=== PATIENT | female | born 1945 | race Caucasian/White ===

== ENCOUNTER → 2023-12-08 14:16 | Outpatient (REF) | payer MEDICARE, OTHER, SELFPAY ==
[2023-12-08 16:07] LABS: Vitamin D, 25-OH*** 19.3 ng/mL (30-80)
[2023-12-08 16:21] LABS: TSH Reflex To Free T4 2.76 uIU/ml (0.47-4.68)
[2023-12-08 16:57] LABS: Folate 9.1 ng/ml (2.76-20); Vitamin B12 > 1000 pg/ml (239-931)
[2023-12-09 09:47] LABS: Glycohemoglobin (HgbA1c) 6.2 % (4.0-5.6)
[2023-12-09 14:14] LABS: Hepatitis B Surface Antigen Negative (Negative)
[2023-12-09 14:32] LABS: Hepatitis B Core Ab, Total Negative (Negative); Hepatitis B Surface Antibody Negative
== END ==
LOC: REG 14:16
PROVIDERS: ATTENDING PHYSICIAN Student in an Organized Health Care Education/Training Program
DX: R41.3 Other amnesia (principal); Z00.00 Encounter for general adult medical examination without abnormal findings; Z68.38 Body mass index [BMI] 38.0-38.9, adult; Z85.3 Personal history of malignant neoplasm of breast; Z85.828 Personal history of other malignant neoplasm of skin; E55.9 Vitamin D deficiency, unspecified; E78.2 Mixed hyperlipidemia; E53.8 Deficiency of other specified B group vitamins; R73.03 Prediabetes
CPT/HCPCS: 36415; 82306; 82607; 82746; 83036; 84443; 86704; 86706; 87340

== ENCOUNTER → 2024-01-23 14:39 | Outpatient (REF) | payer MEDICARE, OTHER, SELFPAY | LOC: WDC 14:39 | PROVIDERS: ATTENDING PHYSICIAN Student in an Organized Health Care Education/Training Program | DX: Z85.3 Personal history of malignant neoplasm of breast (principal); M85.89 Other specified disorders of bone density and structure, multiple sites; Z12.31 Encounter for screening mammogram for malignant neoplasm of breast; Z00.00 Encounter for general adult medical examination without abnormal findings | CPT/HCPCS: 77063; 77067; 77080 ==

== ENCOUNTER → 2024-02-08 06:24 | Day surgery (SDC) | payer MEDICARE, OTHER, SELFPAY | LOC: GI 06:24 | PROVIDERS: ATTENDING PHYSICIAN Internal Medicine | DX: Z12.11 Encounter for screening for malignant neoplasm of colon (principal); K64.8 Other hemorrhoids; K63.5 Polyp of colon; Z86.010 Personal history of colon polyps | CPT/HCPCS: 45385; 88305 ==

== ENCOUNTER → 2024-02-22 10:46 | Outpatient (REF) | payer MEDICARE, OTHER, SELFPAY ==
[2024-02-22 12:20] LABS: % Basophils 0.8 % (0-2); % Eosinophils 2.2 % (0-6); % Immature Granulocytes 0.5 % (0-0.5); % Monocytes 7.9 % (1.7-9.3); % Neutrophils 64.6 % (42.2-75.2); Absolute Basophils 0.1 10^3/uL (0-0.2); Absolute Eosinophils 0.1 10^3/uL (0-0.7); Absolute Lymphocytes 1.5 10^3/uL (1.2-3.4); Absolute Monocytes 0.5 10^3/uL (0.1-0.6); Hematocrit 41.6 % (37.0-47.0); Hemoglobin 14.5 g/dL (12.0-16.0); Mean Corp Hgb Conc. 34.9 g/dL (33.0-37.0); Mean Corpuscular Hgb 31.3 pg (27.0-31.0); Mean Corpuscular Volume 89.8 fL (81.0-99.0); Nucleated Red Blood Cells % 0 %; Platelet Count 346 10^3/uL (130-400); Red Blood Cell Count 4.63 10^6/uL (4.20-5.40); Red Cell Dist. Width 13.3 % (11.5-14.5); White Blood Cell Count 6.2 10^3/uL (4.8-10.8)
[2024-02-22 12:39] LABS: ALT (SGPT) 17 U/L (0-35); AST (SGOT) 26 U/L (14-36); Albumin 4.5 g/dl (3.5-5.0); Alkaline Phosphatase 95 U/L (38-126); Blood Urea Nitrogen 14 mg/dl (7-17); Calcium 9.9 mg/dl (8.4-10.2); Carbon Dioxide 31 mmol/L (22-30); Chloride 97 mmol/L (98-107); Glucose 117 mg/dl (70-99); HDL Cholesterol 59 mg/dl; LDL Cholesterol, Calculated 105 mg/dl; Potassium 4.4 mmol/L (3.5-5.1); Sodium 136 mmol/L (135-145); Total Cholesterol 189 mg/dl (50-199); Total Protein 7.7 g/dl (6.3-8.2); Triglyceride 125 mg/dl (10-149); Very Low Density Lipoprotein 25 mg/dl (0-30); eGFR > 60.00
[2024-02-22 12:52] LABS: Vitamin D, 25-OH*** 19.7 ng/mL (30-80)
[2024-02-22 13:33] LABS: Urine Albumin 1+ (Neg - Trace); Urine Bilirubin 1+ (Negative); Urine Character Very Cloudy (Clear); Urine Color Yellow; Urine Glucose Negative (Negative); Urine Ketone Trace (Negative); Urine Leukocyte Trace (Negative); Urine Nitrite Negative (Negative); Urine Occult Blood Trace (Negative); Urine Specific Gravity 1.025 (<1.030); Urine Urobilinogen 1+ (Neg - 1+)
[2024-02-22 14:56] LABS: Urine Mucus Many; Urine Squamous Cell >30 /LPF (Few)
[2024-02-22 14:57] LABS: Urine Amorphous Seen
[2024-02-22 14:59] LABS: Urine Red Blood Cell 0-2 /HPF (0-2); Urine White Cell 0-2 /HPF (0-5)
== END ==
LOC: REG 10:46
PROVIDERS: ATTENDING PHYSICIAN Nurse Practitioner Family; FAMILY PHYSICIAN Internal Medicine Cardiovascular Disease
DX: E78.2 Mixed hyperlipidemia (principal); I10 Essential (primary) hypertension; G47.33 Obstructive sleep apnea (adult) (pediatric); M85.80 Other specified disorders of bone density and structure, unspecified site; E55.9 Vitamin D deficiency, unspecified; E66.01 Morbid (severe) obesity due to excess calories; E53.8 Deficiency of other specified B group vitamins; R73.03 Prediabetes; G31.84 Mild cognitive impairment of uncertain or unknown etiology
CPT/HCPCS: 36415; 80053; 80061; 81003; 81015; 82306; 85025

== ENCOUNTER → 2024-03-22 09:41 | Outpatient (REF) | payer MEDICARE, OTHER, SELFPAY ==
[2024-03-22 10:20] LABS: Urine Albumin Negative (Neg - Trace); Urine Bilirubin Negative (Negative); Urine Character Clear (Clear); Urine Color Yellow; Urine Glucose Negative (Negative); Urine Ketone Negative (Negative); Urine Leukocyte Negative (Negative); Urine Nitrite Negative (Negative); Urine Occult Blood Negative (Negative); Urine Specific Gravity 1.025 (<1.030); Urine Urobilinogen Negative (Neg - 1+)
== END ==
LOC: REG 09:41
PROVIDERS: ATTENDING PHYSICIAN Nurse Practitioner Family; FAMILY PHYSICIAN Family Medicine
DX: R82.90 Unspecified abnormal findings in urine (principal)
CPT/HCPCS: 81003

== ENCOUNTER 2024-09-17 02:09 | Inpatient (IN) | payer MEDICARE, OTHER, SELFPAY ==
[2024-09-16 22:37] VITALS: BMI 40.8
[2024-09-16 22:45] VITALS: BP 89/45
[2024-09-16 22:46] VITALS: BP 113/55
[2024-09-16 22:47] VITALS: BP 113/55
[2024-09-16 22:59] LABS: % Basophils 0.4 % (0-2); % Eosinophils 1.9 % (0-6); % Immature Granulocytes 0.4 % (0-0.5); % Lymphocytes 24.4 % (20.5-51.1); % Monocytes 4.1 % (1.7-9.3); % Neutrophils 68.8 % (42.2-75.2); Absolute Basophils 0.1 10^3/uL (0-0.2); Absolute Eosinophils 0.2 10^3/uL (0-0.7); Absolute Immature Granulocytes 0.1 10^3/uL (0-0.05); Absolute Lymphocytes 2.9 10^3/uL (1.2-3.4); Absolute Monocytes 0.5 10^3/uL (0.1-0.6); Absolute Neutrophils 8.2 10^3/uL (1.4-6.5); Hematocrit 28.9 % (37.0-47.0); Hemoglobin 9.9 g/dL (12.0-16.0); Mean Corp Hgb Conc. 34.3 g/dL (33.0-37.0); Mean Corpuscular Hgb 32.6 pg (27.0-31.0); Mean Corpuscular Volume 95.1 fL (81.0-99.0); Mean Platelet Volume 8.8 fL (7.4-10.4); Nucleated Red Blood Cells % 0 %; Platelet Count 298 10^3/uL (130-400); Red Blood Cell Count 3.04 10^6/uL (4.20-5.40); Red Cell Dist. Width 13.2 % (11.5-14.5); White Blood Cell Count 11.9 10^3/uL (4.8-10.8)
[2024-09-16 23:00] VITALS: BP 122/52
[2024-09-16 23:08] VITALS: BP 119/46
[2024-09-16 23:08] LABS: INR 0.92; PT 12.7 Sec (11.4-14.6)
[2024-09-16 23:09] LABS: APTT 25.1 Sec (23.4-35.0)
[2024-09-16 23:11] LABS: ALT (SGPT) 16 U/L (0-35); AST (SGOT) 25 U/L (14-36); Albumin 3.5 g/dl (3.5-5.0); Alkaline Phosphatase 75 U/L (38-126); Blood Urea Nitrogen 24 mg/dl (7-17); Carbon Dioxide 26 mmol/L (22-30); Chloride 100 mmol/L (98-107); Estimated Creatinine Clearance 56 ml/min; Glucose 194 mg/dl (70-99); Potassium 4.5 mmol/L (3.5-5.1); Sodium 137 mmol/L (135-145); Total Bilirubin 0.5 mg/dl (0.2-1.3); Total Protein 6.2 g/dl (6.3-8.2); eGFR > 60.00
[2024-09-16 23:30] VITALS: BP 119/59
[2024-09-17] VITALS (15 sets, daily range): BP systolic 105–160; BP diastolic 43–70; PULSE 88; O2SAT 99; BMI 39.2
--- NOTE | 2024-09-17 00:24 | ED.GENMED ---
History of Present Illness
General
Chief Complaint: Rectal Bleeding
Source: patient
Exam Limitations: none
Time Seen by Provider: 09/16/24 23:42
Nursing documentation reviewed up to this point in time: agreed with
History of Present Illness
History of Present Illness:
79-year-old female states she had a large amount of blood from her rectum when she thought she had have a bowel movement about 9:00 PM. She denies abdominal pain. She denies feeling weak or dizzy. Pt denies hx of a fib as noted in her PMHX, is not
anticoagulated
Past History
Past History
ED Past Medical History: Other (sleep apnea, CPAP)
ED Past Surgical History: Gynecological and Orthopedic
Social History
Tobacco: Non-smoker
Alcohol: None
Personal: Single
Living: alone
Review of Systems
Review of Systems
Allergies reviewed?: Yes
All Other Systems: ROS reviewed and negative except as documented in HPI and ROS
Constitutional: Denies fever or fatigue
Respiratory: Denies trouble breathing
Cardiac: Denies chest pain
ABD/GI: Reports bloody stools; Denies abdominal pain, nausea, vomiting, diarrhea or anorexia
: Denies dysuria, frequency or difficulty voiding
Musculoskeletal: Reports no symptoms
Skin: Reports no symptoms
Neurological: Reports no symptoms
Phy Exam
Physical Exam
Physical Exam:
GENERAL: No acute distress. A&Ox3.
CONSTITUTIONAL: Afebrile.
EYES: clear, conjunctivae normal
ENMT: moist mucus membranes
RESPIRATORY: Regular respirations, nonlabored, lungs clear.
CARDIOVASCULAR: Regular rate and rhythm, no murmurs, no rubs.
GI: Soft, nontender, normal BS
Rectal: No stool in rectal vault, maroon liquid heme +
MUSCULOSKELETAL: Moves with ease. Well perfused.
SKIN: Warm, dry, pink
PSYCH: Normal mood and affect. Well kept, interactive and appropriate
NEUROLOGIC: Awake, alert and oriented. No focal neurological deficits
Course
Orders/Labs/Results
Orders:
Orders
09/16/24 22:48
Cardiac Monitoring- Treatment ONCE
IV Insert/Care/Rem.- Treatment PRN
O2 Therapy [RESP] Urgent
Titrate/Wean O2 to maintain O2 sat greater than (%): 93
Special Instructions: MAINTAIN CONTINOUS O2 SATS > OR = 93%
Pulse Ox/spot Check [RESP] Urgent
Quantity: 1
Special Instructions: ON ROOM AIR
09/16/24 22:49
EKG [Electrocardiogram (*1)] Urgent
Reason for Study: Other
Other Reason for Exam: rectal bleeding
EKG- Treatment ONCE
09/16/24 22:51
Type+Screen Urgent
Complete Blood Count/With Diff Urgent
Comprehensive Metabolic Panel Urgent
PTT Urgent
Prothrombin Time Urgent
09/16/24 23:13
ABO2 Urgent
BBK Wristband Number:
Associate notified that ABO2 has been ordered: [id number]
Date: 09/16/24
Time: 23:00
Telex Operator ID: [id number]
09/17/24 01:42
Admit/Transfer Patient As Directed
Co-Sign Provider:
Level of Care: Inpatient admission
Assign to:: Telemetry
Physician / Group: hospitalist
Diagnosis: rectal bleed
Reason for Telemetry: Other
Other Reason for Telemetry: gi bleed
Date to Stop Telemetry: 09/19/24
Time to Stop Telemetry: 11:00
Reason for Hospitalization: lower GI bleed
Expected length of stay greater than two midnights?: Yes
ELOS- Estimated Length of Stay in days: 2
I certify the patient meets the requirements for IP care: Yes
Code Status As Directed
Resuscitation Status: Do not resuscitate
Reached after discussion with pt or family/Healthcare POA: Yes
PRN Pain Medication Management As Directed
May give lesser potent ordered pain med per pt: Yes
preference::
Protocol:: Medication orders for pain may be administered in a
manner that supports deferring to patient preference
when the pt is:
- Requesting an ordered lesser potent pain medication.
Least to most potent pain medications are defined
as: acetaminophen < NSAID < tramadol < opioids
(morphine, oxycodone, hydromorphone).
- Requesting a lesser dose of the same medication IF
ORDERED.
- Requesting a less intrusive route of administration
if both routes are prescribed by the provider (PO <
IV).
09/17/24 01:43
DNR Bracelet Application ONCE
09/17/24 01:45
Cpap [RESP] Urgent
Patient to use own unit?: No
Set Pressure (cm H2O): 12
09/19/24 11:00
DC Protocol for Telemetry ONCE
Abnormal Lab Results
09/16/24
22:51
WBC 11.9 H 10^3/uL
(4.8-10.8)
RBC 3.04 L 10^6/uL
(4.20-5.40)
Hgb 9.9 L g/dL
(12.0-16.0)
Hct 28.9 L %
(37.0-47.0)
MCH 32.6 H pg
(27.0-31.0)
Abs Immat Gran (auto) 0.1 H 10^3/uL
(0-0.05)
Absolute Neuts (auto) 8.2 H 10^3/uL
(1.4-6.5)
BUN 24 H mg/dl
(7-17)
Glucose 194 H mg/dl
(70-99)
Total Protein 6.2 L g/dl
(6.3-8.2)
09/16/24 22:51
09/16/24 22:51
Vital Signs
Initial and Last Documented VS:
Initial Vital Signs
Pulse Resp Pulse Ox
82 28 99
09/16/24 22:41 09/16/24 22:41 09/16/24 22:41
Last Documented Vital Signs
Temp Pulse Resp BP Pulse Ox
98.7 F 90 14 160/66 98
09/16/24 22:46 09/17/24 02:30 09/17/24 02:30 09/17/24 02:30 09/17/24 00:00
MDM/Problems Addressed
Differential Diagnosis Includes:
bleeding diverticulum, fissure, internal hemorrhoid,
MDM/Problems Addressed:
79-year-old female states she had a large amount of blood from her rectum when she thought she had have a bowel movement about 9:00 PM. She denies abdominal pain. She denies feeling weak or dizzy. Pt denies hx of a fib as noted in her PMHX, is not
anticoagulated
CBC: Hgb 9.9
CMP BUN 24, glucose 194 otherwise unremarkable
Rectal exam: Large amount of blood in the perirectal area, no palpable masses or hemorrhoids, no stool in rectal vault, gloved finger with maroon liquid
Consent for blood signed and scanned into chart
Hospitalist notified of admission
*Critical Care Note
Total Time (30-74mins, 75-104mins- exclusive of procedures): Not Applicable
ED Attending Note
-
Portions of this chart may have been created with voice recognition software.� Occasional wrong word or��sound alike� substitutions may have occurred due to the inherent limitations of voice recognition software.
Discharge Plan
Departure
Patient Disposition: Admit
Date of Disposition: 09/17/24
Time of Disposition: 00:46
Admit to: Med/Surg
Presentation/result/management discussed w/ accepting MD/DO: Hospitalist
Condition: Good
Discharge Problem:
RB (rectal bleeding)
Interventions
Interventions:
*Risk Screen - Suicide Last Done: 09/16/24 22:46
*General Assessment Last Done: 09/16/24 22:46
*Neglect/Abuse Screening Last Done: 09/16/24 22:46
*ED- Fall Risk Assessment Last Done: 09/16/24 22:46
TE-Pcbqtw-Wzfpkdhxpd Assessment Last Done: 09/16/24 22:46
ED- Cardiac Assessment Last Done: 09/16/24 22:46
ED- Pulmonary Assessment Last Done: 09/16/24 22:46
--- NOTE | 2024-09-17 01:29 | HPS.HSE ---
Family Physician
-
Family Physician: NOT KNOW UNKNOWN - PT DOES
Chief Complaint
-
Bright red blood per rectum
History of Present Illness
This is a 79-year-old female with past medical history significant for hypertension, hyperlipidemia, NIKOLAS on CPAP presenting to the emergency department with episode of rectal bleeding.
Patient reports been ingested of health up until about 2 hours ago prior to coming to the emergency department. She reported about 1 week ago she was at a blood drive and actually donated 1 unit of blood. There was no concern about anemia at that
time. She reported that today she arose and felt the need to use the commode. She walked and sat on the commode she found us of collapsing to the floor. She specifically denied feeling dizzy prior to the collapse. On the floor she found a bottle
with a bottle of blood and noted that it was coming from her rectum. She was able to bring herself up to call 911. She was then able to walk to the [facility] with help and denied feeling dizzy or lightheaded.
Patient denied having any antecedent abdominal pain or discomfort. She denies any vomiting. She denies any recent diarrhea. She denies any recent NSAID use. She is not on low-dose aspirin and denies any blood thinners.
She had a colonoscopy about 7 months ago in February 2024. She has a history of polyps requiring resections in the past. The perianal and digital rectal examinations were normal. There were 2 sessile polyps of 4 to 5 mm in size and report removed.
Nonbleeding internal hemorrhoids were found. No mention of diverticuli.
She has not had any other bowel movement since then. She has not noticed any further rectal bleeding since then.
In the emergency department she has a blood pressure of 135/50 with a pulse of 78. She is afebrile with a temp of 90.7. ECG showed normal sinus rhythm at rate of 78. Hemoglobin is down to 9.9 from around 4.5 in February of last year. WBCs was 12
platelets were normal, INR normal, electrolytes BUN/creatinine were all normal. Glucose elevated at 194.
Medical History
Past Medical History
Past Medical History: Reports Cancer (Breast cancer status postlumpectomy in 2015), Dementia (Mild dementia), HTN, Hypercholesterolemia and Other (Colonic polyps, sleep apnea)
Past Surgical History: Reports Other (Left lumpectomy)
Social History
Tobacco: Non-smoker
Alcohol: None
Drug: None
Personal: Single
Living: Alone
Employment: Retired
Family History
Family History: Not pertinent
Allergies / Home Medications
Allergies reflects when Allergies were last updated in [email or web address].
Home Medications with original date entered in [email or web address]
Allergy/Medication List:
Allergies: Ibuprofen (vivi-oral edema and paraesthesias)
Rosuvastatin 5 mg tablet, 5 mg p.o. daily
Hydrochlorothiazide 12.5 mg tablet, 10.5 mg p.o. daily
Donepezil 5 mg tablet, 5 mg p.o. daily
Review of Systems
-
History Source: Patient
Constitutional: Reports No Symptoms
EENT: Reports No Symptoms
Respiratory: Reports No Symptoms
Cardiac: Reports No Symptoms
Abdomen/GI: Reports Bloody Stools
: Reports No Symptoms
Musculoskeletal: Reports No Symptoms
Skin: Reports No Symptoms
Neurological: Reports No Symptoms
Endocrine: Reports No Symptoms
Hematologic/Lymphatic: Reports No Symptoms
Psych: Reports No Symptoms
Physical Exam
Vital Signs
Vital Signs
Temp Pulse Resp BP Pulse Ox
98.7 F 78 13 135/54 98
09/16/24 22:46 09/17/24 00:15 09/17/24 00:15 09/17/24 00:00 09/17/24 00:00
Physical Exam
General: Well Developed, Well Nourished, No Apparent Distress and Comfortable
HEENT: NormoCephalic, Anicteric, Moist mucous membranes and Atraumatic
Respiratory: Clear
Cardiac: S1/S2 and Regular Rhythm
Breast: Deferred by me
GI: Soft, Non Tender, Non Distended and Normal Bowel Sounds
Rectal: Red
Genito-urinary: Deferred by me
Musculoskeletal: No Clubbing, No Cyanosis and No Edema
Skin: Warm
Neuro: Nonfocal/grossly intact
Hematologic/Lymphatic: No Lymphadenopathy
Psych: Calm
Laboratory Results
-
09/16/24 22:51
09/16/24 22:51
Laboratory Results
PT 12.7 Sec (11.4-14.6) 09/16/24 22:51
INR 0.92 09/16/24:
APTT 25.1 Sec (23.4-35.0) 09/16/24 22:51
Total Bilirubin 0.5 mg/dl (0.2-1.3) 09/16/24:
AST 25 U/L (14-36) 09/16/24 22:51
ALT 16 U/L (0-35) 09/16/24 22:51
Alkaline Phosphatase 75 U/L (38-126) 09/16/24:51
Data Reviewed
-
Medical Tests (Nuc Med, Echo, EKG etc): Image Personally Visualized and interpreted
Lab Data: Labs Reviewed by me
Old Records: Reviewed
Impression/Plan
-
IMPRESSION:
70-year-old female with past medical history of hypertension and hyperlipidemia who presents to the emergency department with rectal bleeding. She had 1 episode of rectal bleeding in the commode which she apparently also slowly collapsed to the
floor. There was no loss of consciousness. She was able to get up and denied feeling dizzy. She is currently with stable blood pressure 155/50. ECG is unremarkable. She is not on any thinners. No further bloody bowel movements since the
episode about 2 hours ago.
PLAN:
1. Rectal bleeding -history of colonic polyps status post resection of 2 polyps in February. No known diverticuli. Has history of nonbleeding internal hemorrhoids. No external hemorrhoid. She is not having any abdominal pain nausea or vomiting.
She has no recent diarrheal illness. She has drainage of blood about 1 week ago.
-admit to telemetry
- clear liquid diet for now
- no thinners
- type and screen, trend h/h, transfuse for Hgb < 7, consented
- check iron panel
- GI consultation
2. HTN
- hold hctz for now
3. HLD
- continue rosuvastatin
4. NIKOLAS
- cpap 12 hs
DVT PPX - SCDs
Code status - DNR
--- NOTE | 2024-09-17 04:12 | PTCARENOTE ---
pt arrived from ED via stretcher accompanied by ED staff. pt attempted to stand and walk from stretcher to bed, but pt complained of dizziness and lightheadedness. stood and pivoted from stretcher to bed. VSS. pt AAOx3, call walsh within reach, POC
ongoing.
[2024-09-17 09:22] LABS: Hemoglobin 8.1 g/dL (12.0-16.0); Mean Corp Hgb Conc. 33.8 g/dL (33.0-37.0); Mean Corpuscular Hgb 31.5 pg (27.0-31.0); Mean Corpuscular Volume 93.4 fL (81.0-99.0); Mean Platelet Volume 9.2 fL (7.4-10.4); Platelet Count 284 10^3/uL (130-400); Red Blood Cell Count 2.57 10^6/uL (4.20-5.40); Red Cell Dist. Width 13.2 % (11.5-14.5); White Blood Cell Count 9.4 10^3/uL (4.8-10.8)
--- NOTE | 2024-09-17 10:07 | CON.GI ---
Addendum entered and electronically signed by Andrea Wells MD 09/17/24 17:59:
I saw and examined the patient.
The PA's note was reviewed and I agree with the note.
Comment:
79 year old female with h/o HTN and hyperlipidemia who recently donated blood (last Tuesday) who p /w 1 episode of rectal bleeding. Her rectal bleeding consisting mostly stool mixed with bright red blood. She syncopized shortly after. She was
noted to be hypotensive in ER which resolved with IV fluid. She had colonoscopy on 02/2024. Denies abdominal pain or NSAID use. Given her relatively recent colonoscopy, and recent donation of blood, this may represent just hemorrhoidal bleeding.
No immediate plan for endoscopic evaluation for now. Will reassess tomorrow.
Original Note:
Consultation
-
Date/Time Consultation Requested: 09/17/24 0307
Date/Time Consultation Performed: 09/17/24 1008
Requesting Provider: Dr. Weir
Performing Provider: De. Wells/CASTILLO Pringle
Reason for Consultation: Rectal Bleeding
Medical History
Chief Complaint / HPI
Chief Complaint: rectal bleeding
History of Present Illness:
79-year-old female with past medical history of hypertension, hyperlipidemia, colon polyps, mild dementia who donated blood last Tuesday presents to the emergency room with 1 episode of bright red blood per rectum. Asked to evaluate for the same.
The patient states that she got up and felt like she had to go to the bathroom. She went to the bathroom proceeded to have what she thought was a bowel movement and saw a bowel movement in the toilet which was brown associated with large amount of
bright red blood in the toilet. There was no clots. She felt woozy and thinks that she passed out as she awoke on the floor with blood on the floor. She states she went for the phone and called 911 where she was brought to the emergency room for
further evaluation. Her BP was 89/45 on arrival to the emergency room. Her hydrochlorothiazide has been held. Her blood pressure has improved. There was a large amount of blood on in perirectal area no stool in rectal vault with maroon liquid
blood seen by ER. She denies any abdominal discomfort prior to this episode. She denies any chest pain, shortness of breath, nausea or vomiting. At the present time she is tolerating a clear liquid diet. She has had no further events since this.
She has had no further bowel movements. She does not recall what her hemoglobin was prior to donating blood last Tuesday. On arrival her hemoglobin was 9.9, currently is 8.1. Iron is 134, TIBC is 260, iron saturation is 51, ferritin is
pending, B12 and folate are also pending. Patient does state that she takes a multivitamin. She denies any NSAID or aspirin use. The patient denies any fevers, chills, nausea, vomiting, melena, dysphagia or dyne aphasia. No early satiety or
unintentional weight loss. She states she has bowel movements are soft, formed, regular and daily. No straining prior to bowel movements.
Past Medical History
Past Medical History: HTN, Hypercholesterolemia and Other (NIKOLAS on CPAP, colon polyps, mild dementia)
Past Surgical History: Other (left lumpectomy)
Social History
Tobacco: Non-Smoker
Alcohol: None
Drug: None
Personal: Single
Living: Alone
Employment: Retired
Allergies / Home Medications
Allergy/AdvReac Type Severity Reaction Status Date / Time
ibuprofen Allergy Intermediate Swelling Verified 09/17/24 03:37
�Medication �Instructions �Recorded
donepezil 5 mg tablet (Aricept) 5 mg PO DAILY 09/17/24
hydrochlorothiazide 12.5 mg tablet 12.5 mg PO DAILY 09/17/24
rosuvastatin 5 mg tablet 5 mg PO DAILY 09/17/24
Review of Systems
-
All other systems: A 12 pt ROS was Negative except as stated above in HPI
Vital Signs
Temp Pulse Resp BP Pulse Ox
98.3 F 76 18 143/62 96
09/17/24 07:15 09/17/24 07:15 09/17/24 07:15 09/17/24 07:15 09/17/24 07:15
Physical Exam
Exam
General: No Apparent Distress
HEENT: Anicteric
Respiratory: Clear
Cardiac: Regular Rhythm
GI: Soft, Non Tender, Non Distended and Normal Bowel Sounds
Musculoskeletal: No Edema
Skin: Warm and Dry
Neuro: AO x 3
Psych: Calm
Results
WBC 9.4 10^3/uL (4.8-10.8) 09/17/24 08:22
Hgb 8.1 g/dL (12.0-16.0) L 09/17/24 08:22
Hct 24.0 % (37.0-47.0) L 09/17/24 08:22
MCV 93.4 fL (81.0-99.0) 09/17/24 08:22
Plt Count 284 10^3/uL (130-400) 09/17/24 08:22
Absolute Neuts (auto) 8.2 10^3/uL (1.4-6.5) H 09/16/24 22:51
PT 12.7 Sec (11.4-14.6) 09/16/24 22:51
INR 0.92 09/16/24 22:51
APTT 25.1 Sec (23.4-35.0) 09/16/24 22:51
Sodium 137 mmol/L (135-145) 09/16/24 22:51
Potassium 4.5 mmol/L (3.5-5.1) 09/16/24 22:51
Chloride 100 mmol/L (98-107) 09/16/24 22:51
Carbon Dioxide 26 mmol/L (22-30) 09/16/24 22:51
BUN 24 mg/dl (7-17) H 09/16/24 22:51
Creatinine 0.9 mg/dL (0.6-1.0) 09/16/24 22:51
Calcium 9.0 mg/dl (8.4-10.2) 09/16/24 22:51
Total Bilirubin 0.5 mg/dl (0.2-1.3) 09/16/24 22:51
AST 25 U/L (14-36) 09/16/24 22:51
ALT 16 U/L (0-35) 09/16/24 22:51
Alkaline Phosphatase 75 U/L (38-126) 09/16/24 22:51
Diagnostic Image Results:
None
Prior GI Procedures:
EGD: Never
Colonoscopy: 02/08/24 (Lili) - The examined portion of the ileum was normal.
- Two 4 to 5 mm polyps in the ascending colon, removed (Hyperplastic)
with a cold snare. Resected and retrieved.
- Non-bleeding internal hemorrhoids.
- The examination was otherwise normal.
Colonoscopy 12/29/18 (Kristy) - One 3 mm polyp in the cecum, removed with a cold
biopsy forceps. Resected and retrieved. (SSA)
- One 2 mm polyp in the ascending colon, removed with a
cold biopsy forceps. Resected and retrieved.(SSA)
- One 3 mm polyp in the rectum, removed with a cold
biopsy forceps. Resected and retrieved.(Hyperplastic)
- The examination was otherwise normal. Repeat 5 years.
Assessment / Plan
-
79-year-old female with past medical history of hypertension, hyperlipidemia, colon polyps, mild dementia who donated blood last Tuesday presents to the emergency room with 1 episode of bright red blood per rectum. Asked to evaluate for the same.
The patient states that she got up and felt like she had to go to the bathroom. She went to the bathroom proceeded to have what she thought was a bowel movement and saw a bowel movement in the toilet which was brown associated with large amount of
bright red blood in the toilet. There was no clots. She felt woozy and thinks that she passed out as she awoke on the floor with blood on the floor. She states she went for the phone and called 911 where she was brought to the emergency room for
further evaluation. Her BP was 89/45 on arrival to the emergency room. Her hydrochlorothiazide has been held. Her blood pressure has improved. There was a large amount of blood on in perirectal area no stool in rectal vault with maroon liquid
blood seen by ER. We are asked to evaluate for the same. Currently hemoglobin is 8.1 down from 9.9, no further episodes of bleeding since prior to arrival in the emergency room. Patient tolerating clear liquid diet. Vital signs stable. Elevated
BUN however with no upper GI complaints. No upper GI peptic ulcer disease risk factors such as NSAID or steroid use.
Impression:
GI bleed, likely lower given bright red blood.
--> Painless bleeding, 2 prior colonoscopies, last one 02/2024. No mention of diverticulosis however still could be in differential, history of hemorrhoids,
--> Elevated BUN, no risk factors for peptic ulcer disease such as NSAIDs, aspirin, EtOH or steroid use.
Plan:
- Continue clear liquid
- Trend hemoglobin
- Transfuse with hemoglobin less than 7
- We will add pantoprazole 40 mg IV daily, just because BUN out of proportion for creatinine for the time being
- If with signs of active bleeding will obtain CTA abdomen/pelvis
- CBC, BMP in a.m.
- If with any upper GI complaints consider EGD
- Further recommendations to be forthcoming
-
-
Thank you for consultation and allowing me to participate in the patient's care. Please call the lead simulation modeling engineer GI physician during the after hours with any questions or concerns.
[2024-09-17 10:17] LABS: Blood Urea Nitrogen 34 mg/dl (7-17); Calcium 8.7 mg/dl (8.4-10.2); Carbon Dioxide 24 mmol/L (22-30); Chloride 105 mmol/L (98-107); Estimated Creatinine Clearance 71 ml/min; Glucose 117 mg/dl (70-99); Iron 134 ug/dl (37-170); Potassium 4.7 mmol/L (3.5-5.1); Sodium 136 mmol/L (135-145); eGFR > 60.00
[2024-09-17 10:26] LABS: Percent Saturation 51 % (20-50); Total Iron Binding Capacity 260 ug/dl (265-497)
[2024-09-17 10:53] LABS: Ferritin 52.1 ng/ml (11.1-264.0)
--- NOTE | 2024-09-17 11:14 | VATNOTE ---
Right Arm Only
--- NOTE | 2024-09-17 11:15 | W.PN.HOSP.TC ---
Today's Communication/Plan
-
f/w GI recommendations
Assessment / Plan
Assessment / Plan
Physical Exam
General: Well Developed, Well Nourished, No Apparent Distress and Comfortable
HEENT: NormoCephalic, Anicteric, Moist mucous membranes and Atraumatic
Respiratory: Clear
Cardiac: S1/S2 and Regular Rhythm
Breast: Deferred by me
GI: Soft, Non Tender, Non Distended and Normal Bowel Sounds
Rectal: Red
Genito-urinary: Deferred by me
Musculoskeletal: No Clubbing, No Cyanosis and No Edema
Skin: Warm
Neuro: Nonfocal/grossly intact
Hematologic/Lymphatic: No Lymphadenopathy
Psych: Calm
1-year-old female with past medical history of hypertension and hyperlipidemia who presents to the emergency department with rectal bleeding. She had 1 episode of rectal bleeding in the commode which she apparently also slowly collapsed to the
floor. There was no loss of consciousness. She was able to get up and denied feeling dizzy. She is currently with stable blood pressure 155/50. ECG is unremarkable. She is not on any thinners. No further bloody bowel movements since the
episode about 2 hours ago.
PLAN:
#Rectal bleeding
Acute blood loss anemia
-history of colonic polyps status post resection of 2 polyps in February. No known diverticula. Has history of nonbleeding internal hemorrhoids. No external hemorrhoid. She is not having any abdominal pain nausea or vomiting. She has no recent
diarrheal illness. She has drainage of blood about 1 week ago.
- clear liquid diet for now
- no recurrent rectal bleeding
- not on AC medications
- type and screen, trend h/h, transfuse for Hgb < 7, consented
- check iron panel
- GI consultation , f/w recommendations
# Essential HTN
One time reading in ER of low BP was not significant
- held hctz upon admission
BP is uncontrolled now
restart HCTZ
# Leukocytosis, resolved
#HLD
- continue rosuvastatin
# NIKOLAS
- cpap 12 hs
DVT PPX - SCDs
Code status - DNR
Anticipated Discharge: 24 - 48 hours
Subjective/Interval History
-
Date of Service: September 17, 2024
No chest pain
No sob
No abd pain
Objective Data
-
Labs:
Laboratory Results
09/17/24 09/17/24
08:22 14:00
WBC 9.4
Hgb 8.1 L Pending
Hct 24.0 L Pending
Plt Count 284
Sodium 136
Potassium 4.7
Chloride 105
Carbon Dioxide 24
BUN 34 H
Creatinine 0.7
Glucose 117 H
Calcium 8.7
Vital Signs:
Vital Signs
Temp Pulse Resp BP Pulse Ox
98.3 F 76 18 143/62 96
09/17/24 07:15 09/17/24 07:15 09/17/24 07:15 09/17/24 07:15 09/17/24 07:15
I&O
09/16/24 09/17/24 09/18/24
06:59 06:59 06:59
Intake Total 480 / 480
Balance 480 / 480
[2024-09-17 11:24] LABS: Folate 10.8 ng/ml (2.76-20); Vitamin B12 554 pg/ml (239-931)
[2024-09-17] MEDS: PROTONIX IV 40 MG IV (12:46)
[2024-09-17] MEDS: NSS (PRESERVATIVE FREE) 10 ML IV (12:47)
--- NOTE | 2024-09-17 12:53 | CM ---
Patient seen bedside, initial assessment completed. Patient is a 79-year-old female with past medical history significant for hypertension, hyperlipidemia, NIKOLAS on CPAP presenting to the emergency department with episode of rectal bleeding.
Patient reports that she lives alone in a 2STH-1 step to enter from garage. Patient is independent w/ ambulating, no device required. Patient states she has a shower chair and utilizes CPAP at night, patient has had CPAP for 15 years. Patient
declined SNF/VN/PT hx. Patient engaged in OP therapy in the past after she broke her leg. Denies any current OP or home services at this time.
Address, points of contact and insurance verified
PCP: CASTILLO Anderson
Pharmacy: [facility]
PT/OT evaluations ordered. Will watch for any recommendations
Plan: CM will cont to follow for d/c planning
[2024-09-17 18:08] LABS: Hematocrit 21.6 % (37.0-47.0); Hemoglobin 7.5 g/dL (12.0-16.0)
[2024-09-17] MEDS: ARICEPT 5 MG PO (20:23)
[2024-09-18] VITALS (20 sets, daily range): BP systolic 108–165; BP diastolic 43–74
--- NOTE | 2024-09-18 06:53 | W.PN.GI.CBS2 ---
Today's Communication / Plan
-
Please see assessment and plan for details.
Assessment / Plan
-
1. GI bleed: With likely baseline anemia from recent blood donation, with episode of bright red blood and brown stool otherwise, possibly secondary to hemorrhoids. Recent colonoscopy as well as previous colonoscopy did not show any diverticulosis.
Her BUN is mildly elevated and peptic ulcer disease is not completely excluded though does seem much less likely. At this point she has had no further gross bleeding. Will await morning labs. If hemoglobin continues to decline then would likely
plan EGD and flex sig. If improved then will advance diet and continue observation.
Subjective
Subjective
Date of Service: September 18, 2024
Patient feeling okay, 2 small bowel movements yesterday though no melena, no signs of bleeding, no bleeding overnight. No nausea, vomiting, fever or chills.
Objective
Data Reviewed
Laboratory Data:
Laboratory Results
PT 12.7 Sec (11.4-14.6) 09/16/24 22:51
INR 0.92 09/16/24 22:51
APTT 25.1 Sec (23.4-35.0) 09/16/24 22:51
Total Bilirubin 0.5 mg/dl (0.2-1.3) 09/16/24 22:51
AST 25 U/L (14-36) 09/16/24 22:51
ALT 16 U/L (0-35) 09/16/24 22:51
Alkaline Phosphatase 75 U/L (38-126) 09/16/24 22:51
Vital Signs and I&O:
Vital Signs
Temp Pulse Resp BP Pulse Ox
98.5 F 85 18 163/74 98
09/18/24 03:07 09/18/24 03:07 09/18/24 03:07 09/18/24 03:07 09/18/24 03:07
I&O
09/16/24 09/17/24 09/18/24
06:59 06:59 06:59
Intake Total 480 / 480 700 / 700
Balance 480 / 480 700 / 700
Physical Exam
Physical Exam
General: NAD
Abdomen: normal bowel sounds, soft, no tenderness, no masses or bruits, no ascites
[2024-09-18] MEDS: NSS (PRESERVATIVE FREE) 10 ML IV (08:03)
[2024-09-18] MEDS: PROTONIX IV 40 MG IV (08:04)
[2024-09-18 08:42] LABS: Hematocrit 19.5 % (37.0-47.0); Hemoglobin 6.8 g/dL (12.0-16.0); Mean Corp Hgb Conc. 34.9 g/dL (33.0-37.0); Mean Corpuscular Hgb 33.2 pg (27.0-31.0); Mean Corpuscular Volume 95.1 fL (81.0-99.0); Mean Platelet Volume 8.8 fL (7.4-10.4); Platelet Count 252 10^3/uL (130-400); Red Blood Cell Count 2.05 10^6/uL (4.20-5.40); Red Cell Dist. Width 13.3 % (11.5-14.5); White Blood Cell Count 7.9 10^3/uL (4.8-10.8)
--- NOTE | 2024-09-18 09:15 | W.PN.HOSP.TC ---
Addendum entered and electronically signed by Olegario Vides MD 09/18/24 11:58:
Addendum
Rapid response
Patient had vasovagal episode while on the commode. Placed back in bed. Patient currently is feeling better. Blood pressure is stable. She is receiving 1 unit of blood transfusion for now and we will give another later today. Plan is to go for
EGD today.
I also updated her sister over the phone
End
Original Note:
Today's Communication/Plan
-
NPO
EGD today
One unit of RBCs transfusion
PRN IV Hydralazine
Assessment / Plan
Assessment / Plan
Physical Exam
General: Well Developed, Well Nourished, No Apparent Distress and Comfortable
HEENT: NormoCephalic, Anicteric, Moist mucous membranes and Atraumatic
Respiratory: Clear
Cardiac: S1/S2 and Regular Rhythm
Breast: Deferred by me
GI: Soft, Non Tender, Non Distended and Normal Bowel Sounds
Rectal: Red
Genito-urinary: No hematuria
Musculoskeletal: No Clubbing, No Cyanosis and No Edema
Skin: Warm
Neuro: Nonfocal/grossly intact
Hematologic/Lymphatic: No Lymphadenopathy
Psych: Calm
1-year-old female with past medical history of hypertension and hyperlipidemia who presents to the emergency department with rectal bleeding. She had 1 episode of rectal bleeding in the commode which she apparently also slowly collapsed to the
floor. There was no loss of consciousness. She was able to get up and denied feeling dizzy. She is currently with stable blood pressure 155/50. ECG is unremarkable. She is not on any thinners. No further bloody bowel movements since the
episode about 2 hours ago.
PLAN:
#Rectal bleeding
Acute blood loss anemia
-history of colonic polyps status post resection of 2 polyps in February. No known diverticula. Has history of nonbleeding internal hemorrhoids. No external hemorrhoid. She is not having any abdominal pain nausea or vomiting. She has no recent
diarrheal illness. She has drainage of blood about 1 week ago.
-She tolerated liquid diet but hGB dropped to 6.8. d/w GI, plan for EGD today, NPO for now
To give one unit of RBCs 09/18
- no recurrent rectal bleeding
- not on AC medications
- type and screen, trend h/h, transfuse for Hgb < 7, consented
- check iron panel
- GI consultation , f/w recommendations
# Essential HTN
One time reading in ER of low BP was not significant
- held hctz upon admission
BP is uncontrolled now
restart HCTZ
Add PRN IV Hydralazine while NPO
# Leukocytosis, resolved
#HLD
- continue rosuvastatin
# NIKOLAS
- cpap 12 hs
DVT PPX - SCDs
Code status - DNR
Total time spent to see the patient, examine the patient, review data and lab results, discuss treatment plan with patient and nursing staff around 55 minutes
Anticipated Discharge: 24 - 48 hours
Subjective/Interval History
-
Date of Service: September 18, 2024
No chest pain
No abd pain
No rectal bleeding
Objective Data
-
Labs:
Laboratory Results
09/18/24
08:24
WBC 7.9
Hgb 6.8 L*
Hct 19.5 L*
Plt Count 252
Sodium Pending
Potassium Pending
Chloride Pending
Carbon Dioxide Pending
BUN Pending
Creatinine Pending
Glucose Pending
Calcium Pending
Vital Signs:
Vital Signs
Temp Pulse Resp BP Pulse Ox
98.4 F 84 18 131/60 98
09/18/24 07:53 09/18/24 07:53 09/18/24 07:53 09/18/24 07:53 09/18/24 07:53
I&O
09/17/24 09/18/24 09/19/24
06:59 06:59 06:59
Intake Total 480 / 480 700 / 700
Balance 480 / 480 700 / 700
[2024-09-18 09:21] LABS: Blood Urea Nitrogen 27 mg/dl (7-17); Calcium 8.5 mg/dl (8.4-10.2); Carbon Dioxide 26 mmol/L (22-30); Chloride 104 mmol/L (98-107); Estimated Creatinine Clearance 62 ml/min; Glucose 115 mg/dl (70-99); Potassium 4.3 mmol/L (3.5-5.1); Sodium 137 mmol/L (135-145); eGFR > 60.00
[2024-09-18 09:23] LABS: Hepatitis B Surface Antigen Negative (Negative)
[2024-09-18 09:40] LABS: Hepatitis C Antibody Negative (Negative)
[2024-09-18 10:04] LABS: Glucose - Point of Care 143 mg/dl (70-99)
--- NOTE | 2024-09-18 11:02 | RR ---
Pt is a 79 y/o female who was admitted for Gi Bleed with an syncopal episode at home. Pt OOB to commode with RN. Pt became dizzy, eyes rolled back in back of head. All extremities and torso began shaking. Patient placed back in bed by several
staff members. Pt responded once she was in bed. BS was 143. B/P 125/43, HR 85, O2 sat 96 % on RA. Rapid Response was called on this patient, please see Rapid Response form.
--- NOTE | 2024-09-18 11:06 | PN.CDI ---
Addendum entered and electronically signed by Olegario Vides MD 09/18/24 11:51:
morbid obesity
Original Note:
CDI
- -
CDI:
Physician Documentation Request
Admit Date: 09/17/24 02:09
Dear Doctor Peewee,
Please review the following and provide your response in the progress notes.
Clinical Indicators:
Height: 5'2
Weight: 222 lbs
BMI: 40.8
If possible, please provide an associated diagnosis related to the abnormal BMI, such as:
Morbid obesity
BMI is not significant
Other (please specify)
Use of terms such as suspected, likely, concern for, or probable (associated with a specific diagnosis that is being evaluated, monitored, or treated as if it exists) are acceptable and can be coded in the inpatient setting, when documented at the
time of discharge.
Thank you,
Jyoti Almaguer RN
CDI Specialist
Please use your independent medical judgment in providing your response.
--- NOTE | 2024-09-18 11:07 | RR ---
A Rapid Response was called on this patient, please see Rapid Response form.
Pt. in bed upon ICU arrival, AAOx3, normocephalic/Anicteric appearing sclera P=/R x3mm. No apparent distress noted, maintaining own airway RA sp2 96%. Normotensive, Normothermic, following commands. Primary RN reported hgb drop to 6.8, Infusion Prbc
hanging but not yet stated at time of arrival. Functioning IV in Rhand.
Rec: Obtain larger iV access site, which Vascular access team present bedside performing now.
No further ICU needs at this time.
[2024-09-18 12:18] LABS: HIV Combo Negative (Negative)
[2024-09-18] MEDS: NULYTELY SOLUTION 4 LITERS PO (18:08)
--- NOTE | 2024-09-18 19:05 | PTCARENOTE ---
Pt given 500 ml tap water enema at 1200 with results of bloody liquid. Pt sent to GI unit at 1300. Pt returned from GI AAox3. Assessment benign. Pt received a total of 2 units of PRBC's today without difficulty. 1800 Pt started on Bowel prep
for colonoscopy 09/19. made patient comfortable. Pt tolerated clear liquids. Cont to assess patient status.
[2024-09-18] MEDS: ARICEPT 5 MG PO (20:12)
[2024-09-19] VITALS (14 sets, daily range): BP systolic 12–156; BP diastolic 45–78
--- NOTE | 2024-09-19 00:04 | PTCARENOTE ---
Pt drank about 3/4 of the 4L of bowel prep/Colyte. Patient educated on the importance of the prep for her colonoscopy and was encouraged to try and drink as much as she can. Pt has had multiple bloody bowel movements with clots. AAOx3, VSS. Call
walsh is within reach.
--- NOTE | 2024-09-19 04:28 | DOWNTIME ---
There was a [employer] Downtime on 09/19/2024 from 0100 to 09/20/2023 at 0420 . Downtime documentation of patient's care, including medication administrations, has been reconciled in the electronic record per guidelines. Refer to the
patient's paper chart under the miscellaneous tab to see printed paper medication records and downtime forms.
[2024-09-19 08:05] LABS: Hematocrit 23.7 % (37.0-47.0); Hemoglobin 8.1 g/dL (12.0-16.0); Mean Corp Hgb Conc. 34.2 g/dL (33.0-37.0); Mean Corpuscular Hgb 31.5 pg (27.0-31.0); Mean Corpuscular Volume 92.2 fL (81.0-99.0); Platelet Count 235 10^3/uL (130-400); Red Blood Cell Count 2.57 10^6/uL (4.20-5.40); Red Cell Dist. Width 14.7 % (11.5-14.5); White Blood Cell Count 7.1 10^3/uL (4.8-10.8)
[2024-09-19] MEDS: PROTONIX IV 40 MG IV (09:53)
[2024-09-19] MEDS: NSS (PRESERVATIVE FREE) 10 ML IV (09:53)
--- NOTE | 2024-09-19 11:59 | W.PN.HOSP.TC ---
Today's Communication/Plan
-
advance diet
Likely discharge in a.m.
Assessment / Plan
Assessment / Plan
Physical Exam
General: Well Developed, Well Nourished, No Apparent Distress and Comfortable
HEENT: NormoCephalic, Anicteric, Moist mucous membranes and Atraumatic
Respiratory: Clear
Cardiac: S1/S2 and Regular Rhythm
Breast: Deferred by me
GI: Soft, Non Tender, Non Distended and Normal Bowel Sounds
Rectal: Red
Genito-urinary: No hematuria
Musculoskeletal: No Clubbing, No Cyanosis and No Edema
Skin: Warm
Neuro: Nonfocal/grossly intact
Hematologic/Lymphatic: No Lymphadenopathy
Psych: Calm
79-year-old female with past medical history of hypertension and hyperlipidemia who presents to the emergency department with rectal bleeding. She had 1 episode of rectal bleeding in the commode which she apparently also slowly collapsed to the
floor. There was no loss of consciousness. She was able to get up and denied feeling dizzy. She is currently with stable blood pressure 155/50. ECG is unremarkable. She is not on any thinners. No further bloody bowel movements since the
episode about 2 hours ago.
PLAN:
#Rectal bleeding
Acute blood loss anemia
-history of colonic polyps status post resection of 2 polyps in February. No known diverticula. Has history of nonbleeding internal hemorrhoids. No external hemorrhoid. She is not having any abdominal pain nausea or vomiting. She has no recent
diarrheal illness. She has drainage of blood about 1 week ago.
Status post doing evidence of blood transfusion
Upper EGD no source of bleeding
Status post bowel prep and colonoscopy that showed internal hemorrhoids no further abnormalities
Recommended outpatient capsule endoscopy
Okay to advance diet
- GI consultation , f/w recommendations
# Essential HTN
- held hctz upon admission
restart HCTZ in a.m.
Add PRN IV Hydralazine while NPO
# Status post vasovagal syncopal episode. Resolved. Stable vital signs
# Leukocytosis, resolved
#HLD
- continue rosuvastatin
# NKIOLAS
- cpap 12 hs
DVT PPX - SCDs
Code status - DNR
Total time spent to see the patient, examine the patient, review data and lab results, discuss treatment plan with patient and nursing staff around 55 minutes
Anticipated Discharge: Within 24 hours
Subjective/Interval History
-
Date of Service: September 19, 2024
No chest pain
No sob
No abdominal pain
No rectal bleeding
Objective Data
-
Labs:
Laboratory Results
09/19/24
07:09
WBC 7.1
Hgb 8.1 L
Hct 23.7 L
Plt Count 235
Vital Signs:
Vital Signs
Temp Pulse Resp BP Pulse Ox
97.6 F 77 18 156/52 95
09/19/24 11:31 09/19/24 11:31 09/19/24 11:31 09/19/24 11:31 09/19/24 11:31
I&O
09/18/24 09/19/24 09/20/24
06:59 06:59 06:59
Intake Total 700 / 700 3050 / 3050
Output Total 650 / 650
Balance 700 / 700 2400 / 2400
[2024-09-19] MEDS: ARICEPT 5 MG PO (21:08)
[2024-09-20] VITALS (11 sets, daily range): BP systolic 116–137; BP diastolic 46–72
--- NOTE | 2024-09-20 06:31 | W.PN.GI.CBS2 ---
Today's Communication / Plan
-
Please see assessment and plan for details.
Assessment / Plan
-
1. GI bleed: Obscure source, likely small intestinal given negative EGD and colonoscopy with small amount of old blood in the terminal ileum, though no further signs of gross bleeding, hemoglobin has been stable posttransfusion. At this point will
await morning labs, if stable and tolerating breakfast and is okay to DC from GI standpoint, will plan outpatient capsule endoscopy.
Subjective
Subjective
Date of Service: September 20, 2024
Patient feeling okay, tolerated dinner without difficulty, no abdominal pain, nausea or vomiting. 1 stool last night which was brown.
Objective
Data Reviewed
Laboratory Data:
Laboratory Results
09/18/24 08:24
Laboratory Results
PT 12.7 Sec (11.4-14.6) 09/16/24 22:51
INR 0.92 09/16/24 22:51
APTT 25.1 Sec (23.4-35.0) 09/16/24 22:51
Total Bilirubin 0.5 mg/dl (0.2-1.3) 09/16/24 22:51
AST 25 U/L (14-36) 09/16/24 22:51
ALT 16 U/L (0-35) 09/16/24 22:51
Alkaline Phosphatase 75 U/L (38-126) 09/16/24 22:51
Vital Signs and I&O:
Vital Signs
Temp Pulse Resp BP Pulse Ox
98.1 F 80 19 131/48 96
09/20/24 03:18 09/20/24 03:18 09/20/24 03:18 09/20/24 03:18 09/20/24 03:18
I&O
09/18/24 09/19/24 09/20/24
06:59 06:59 06:59
Intake Total 700 / 700 3050 / 3050 480 / 480
Output Total 650 / 650
Balance 700 / 700 2400 / 2400 480 / 480
Physical Exam
Physical Exam
General: NAD
Abdomen: normal bowel sounds, soft, no tenderness, no masses or bruits, no ascites
[2024-09-20 08:47] LABS: Hematocrit 19.7 % (37.0-47.0); Hemoglobin 6.6 g/dL (12.0-16.0); Mean Corp Hgb Conc. 33.5 g/dL (33.0-37.0); Mean Corpuscular Hgb 31.6 pg (27.0-31.0); Mean Corpuscular Volume 94.3 fL (81.0-99.0); Platelet Count 215 10^3/uL (130-400); Red Blood Cell Count 2.09 10^6/uL (4.20-5.40); Red Cell Dist. Width 14.6 % (11.5-14.5)
[2024-09-20] MEDS: PROTONIX IV 40 MG IV (09:01)
[2024-09-20] MEDS: NSS (PRESERVATIVE FREE) 10 ML IV (09:01)
[2024-09-20 09:40] LABS: Hematocrit 19.7 % (37.0-47.0); Hemoglobin 6.6 g/dL (12.0-16.0); Mean Corp Hgb Conc. 33.5 g/dL (33.0-37.0); Mean Corpuscular Hgb 31.6 pg (27.0-31.0); Mean Corpuscular Volume 94.3 fL (81.0-99.0); Mean Platelet Volume 8.8 fL (7.4-10.4); Platelet Count 216 10^3/uL (130-400); Red Blood Cell Count 2.09 10^6/uL (4.20-5.40); Red Cell Dist. Width 14.6 % (11.5-14.5); White Blood Cell Count 7.1 10^3/uL (4.8-10.8)
--- NOTE | 2024-09-20 10:19 | W.PN.HOSP.TC ---
Today's Communication/Plan
-
Low HGB
Will give 2 units of blood
f/w GI recommendations
Pt declined dietary count
Assessment / Plan
Assessment / Plan
Physical Exam
General: Well Developed, Well Nourished, No Apparent Distress and Comfortable
HEENT: NormoCephalic, Anicteric, Moist mucous membranes and Atraumatic
Respiratory: Clear
Cardiac: S1/S2 and Regular Rhythm
Breast: Deferred by me
GI: Soft, Non Tender, Non Distended and Normal Bowel Sounds
Rectal: Red
Genito-urinary: No hematuria
Musculoskeletal: No Clubbing, No Cyanosis and No Edema
Skin: Warm
Neuro: Nonfocal/grossly intact
Hematologic/Lymphatic: No Lymphadenopathy
Psych: Calm
79-year-old female with past medical history of hypertension and hyperlipidemia who presents to the emergency department with rectal bleeding. She had 1 episode of rectal bleeding in the commode which she apparently also slowly collapsed to the
floor. There was no loss of consciousness. She was able to get up and denied feeling dizzy. She is currently with stable blood pressure 155/50. ECG is unremarkable. She is not on any thinners. No further bloody bowel movements since the
episode about 2 hours ago.
PLAN:
#Rectal bleeding
Acute blood loss anemia
-history of colonic polyps status post resection of 2 polyps in February. No known diverticula. Has history of nonbleeding internal hemorrhoids. No external hemorrhoid. She is not having any abdominal pain nausea or vomiting. She has no recent
diarrheal illness. She has drainage of blood about 1 week ago.
Will give 2 units today
s/p 2 units before
Status post EGD and colonoscopy without evidence of source
Recommended outpatient capsule endoscopy
Okay to advance diet
- GI consultation , f/w recommendations
# Essential HTN
- held hctz upon admission
restart HCTZ in a.m.
Add PRN IV Hydralazine while NPO
# Status post vasovagal syncopal episode. Resolved. Stable vital signs
# Leukocytosis, resolved
#HLD
- continue rosuvastatin
# NIKOLAS
- cpap 12 hs
DVT PPX - SCDs
Code status - DNR
Total time spent to see the patient, examine the patient, review data and lab results, discuss treatment plan with patient and nursing staff around 55 minutes
Anticipated Discharge: 24 - 48 hours
Subjective/Interval History
-
Date of Service: September 20, 2024
Had one solid black stool over night
Objective Data
-
Labs:
Laboratory Results
09/20/24 09/20/24 09/20/24
08:00 09:21 17:30
WBC 7.0 7.1 Pending
Hgb 6.6 L* 6.6 L* Pending
Hct 19.7 L* 19.7 L* Pending
Plt Count 215 216 Pending
09/20/24
23:30
WBC Pending
Hgb Pending
Hct Pending
Plt Count Pending
Vital Signs:
Vital Signs
Temp Pulse Resp BP Pulse Ox
98.1 F 80 18 130/62 98
09/20/24 07:50 09/20/24 07:50 09/20/24 07:50 09/20/24 07:50 09/20/24 07:50
I&O
09/19/24 09/20/24 09/21/24
06:59 06:59 06:59
Intake Total 3050 / 3050 720 / 720
Output Total 650 / 650
Balance 2400 / 2400 720 / 720
--- NOTE | 2024-09-20 13:04 | CM ---
Chart reviewed for d/c planning. Per chart, low hgb, therapy attempted to see but unable to due to low hgb. Therapy to see prior to d/c
Plan: Home, poss HC needs
[2024-09-20] MEDS: ARICEPT 5 MG PO (21:02)
[2024-09-20 21:14] LABS: % Basophils 0.4 % (0-2); % Immature Granulocytes 0.3 % (0-0.5); % Lymphocytes 31.9 % (20.5-51.1); % Neutrophils 56.4 % (42.2-75.2); Absolute Eosinophils 0.3 10^3/uL (0-0.7); Absolute Lymphocytes 2.4 10^3/uL (1.2-3.4); Absolute Monocytes 0.5 10^3/uL (0.1-0.6); Absolute Neutrophils 4.3 10^3/uL (1.4-6.5); Hematocrit 26.6 % (37.0-47.0); Hemoglobin 9.3 g/dL (12.0-16.0); Mean Corpuscular Hgb 31.8 pg (27.0-31.0); Mean Corpuscular Volume 91.1 fL (81.0-99.0); Mean Platelet Volume 8.8 fL (7.4-10.4); Nucleated Red Blood Cells % 0.3 %; Platelet Count 209 10^3/uL (130-400); Red Blood Cell Count 2.92 10^6/uL (4.20-5.40); Red Cell Dist. Width 14.5 % (11.5-14.5); White Blood Cell Count 7.7 10^3/uL (4.8-10.8)
[2024-09-21] VITALS (15 sets, daily range): BP systolic 15–157; BP diastolic 50–78; PULSE 63–82; O2SAT 96–98
[2024-09-21 05:14] LABS: % Basophils 0.6 % (0-2); % Eosinophils 5.8 % (0-6); % Immature Granulocytes 0.6 % (0-0.5); % Lymphocytes 31.9 % (20.5-51.1); % Monocytes 7.4 % (1.7-9.3); % Neutrophils 53.7 % (42.2-75.2); Absolute Eosinophils 0.4 10^3/uL (0-0.7); Absolute Monocytes 0.5 10^3/uL (0.1-0.6); Absolute Neutrophils 3.4 10^3/uL (1.4-6.5); Hematocrit 25.4 % (37.0-47.0); Mean Corp Hgb Conc. 35.4 g/dL (33.0-37.0); Mean Corpuscular Hgb 32.7 pg (27.0-31.0); Mean Corpuscular Volume 92.4 fL (81.0-99.0); Nucleated Red Blood Cells % 0.5 %; Platelet Count 223 10^3/uL (130-400); Red Blood Cell Count 2.75 10^6/uL (4.20-5.40); Red Cell Dist. Width 14.8 % (11.5-14.5); White Blood Cell Count 6.4 10^3/uL (4.8-10.8)
[2024-09-21] MEDS: PROTONIX IV 40 MG IV (09:46)
[2024-09-21] MEDS: NSS (PRESERVATIVE FREE) 10 ML IV (09:46)
--- NOTE | 2024-09-21 10:42 | W.PN.HOSP.TC ---
Today's Communication/Plan
-
NPO today
Stable HGB
Assessment / Plan
Assessment / Plan
Physical Exam
General: Well Developed, Well Nourished, No Apparent Distress and Comfortable
HEENT: NormoCephalic, Anicteric, Moist mucous membranes and Atraumatic
Respiratory: Clear
Cardiac: S1/S2 and Regular Rhythm
Breast: Deferred by me
GI: Soft, Non Tender, Non Distended and Normal Bowel Sounds
Rectal: Red
Genito-urinary: No hematuria
Musculoskeletal: No Clubbing, No Cyanosis and No Edema
Skin: Warm
Neuro: Nonfocal/grossly intact
Hematologic/Lymphatic: No Lymphadenopathy
Psych: Calm
79-year-old female with past medical history of hypertension and hyperlipidemia who presents to the emergency department with rectal bleeding. She had 1 episode of rectal bleeding in the commode which she apparently also slowly collapsed to the
floor. There was no loss of consciousness. She was able to get up and denied feeling dizzy. She is currently with stable blood pressure 155/50. ECG is unremarkable. She is not on any thinners. No further bloody bowel movements since the
episode about 2 hours ago.
PLAN:
#Rectal bleeding
Acute blood loss anemia
-history of colonic polyps status post resection of 2 polyps in February. No known diverticula. Has history of nonbleeding internal hemorrhoids. No external hemorrhoid. She is not having any abdominal pain nausea or vomiting. She has no recent
diarrheal illness. She has drainage of blood about 1 week ago.
s/p 4 units total.
Status post EGD and colonoscopy without evidence of source
For Endoscopic evaluation today - GI consultation , f/w recommendations
# Essential HTN
- held hctz upon admission
restart HCTZ in a.m.
Add PRN IV Hydralazine while NPO
# Mild cognitive impairment
Sometimes forgetful
No agitation
# Status post vasovagal syncopal episode. Resolved. Stable vital signs
# Leukocytosis, resolved
#HLD
- continue rosuvastatin
# NIKOLAS
- cpap 12 hs
DVT PPX - SCDs
Code status - DNR
Total time spent to see the patient, examine the patient, review data and lab results, discuss treatment plan with patient and nursing staff around 55 minutes
Anticipated Discharge: Within 24 hours
Subjective/Interval History
-
Date of Service: September 21, 2024
No black or bloody BM over night
Objective Data
-
Labs:
Laboratory Results
09/21/24
04:37
WBC 6.4
Hgb 9.0 L
Hct 25.4 L
Plt Count 223
Vital Signs:
Vital Signs
Temp Pulse Resp BP Pulse Ox
98.2 F 66 16 145/64 97
09/21/24 07:00 09/21/24 07:00 09/21/24 07:00 09/21/24 07:00 09/21/24 07:00
I&O
09/20/24 09/21/24 09/22/24
06:59 06:59 06:59
Intake Total 720 / 720 980 / 980
Balance 720 / 720 980 / 980
[2024-09-21] MEDS: ARICEPT PO (20:58)
[2024-09-21] MEDS: ARICEPT 5 MG PO (21:00)
[2024-09-22 03:38] VITALS: BP 149/57
[2024-09-22 07:00] VITALS: BP 159/66
[2024-09-22 07:18] LABS: Hematocrit 26.9 % (37.0-47.0); Hemoglobin 9.3 g/dL (12.0-16.0); Mean Corp Hgb Conc. 34.6 g/dL (33.0-37.0); Mean Corpuscular Hgb 31.8 pg (27.0-31.0); Mean Corpuscular Volume 92.1 fL (81.0-99.0); Mean Platelet Volume 9.2 fL (7.4-10.4); Platelet Count 243 10^3/uL (130-400); Red Blood Cell Count 2.92 10^6/uL (4.20-5.40); Red Cell Dist. Width 15.2 % (11.5-14.5); White Blood Cell Count 5.9 10^3/uL (4.8-10.8)
[2024-09-22 08:00] LABS: Blood Urea Nitrogen 13 mg/dl (7-17); Calcium 8.4 mg/dl (8.4-10.2); Carbon Dioxide 28 mmol/L (22-30); Chloride 104 mmol/L (98-107); Estimated Creatinine Clearance 71 ml/min; Glucose 94 mg/dl (70-99); Potassium 3.9 mmol/L (3.5-5.1); Sodium 137 mmol/L (135-145); eGFR > 60.00
[2024-09-22] MEDS: PROTONIX IV 40 MG IV (08:40)
[2024-09-22] MEDS: NSS (PRESERVATIVE FREE) 10 ML IV (08:40)
--- NOTE | 2024-09-22 09:26 | W.PN.HOSP.TC ---
Addendum entered and electronically signed by Olegario Vides MD 09/22/24 13:54:
Addendum
Spoke with daughter Fatemeh about discharge planning [phone]
Discussed with heel caser, patient to go to SNF
Total discharge time spent to see the patient, examine the patient, review data and lab results, discuss discharge plan with patient, heel caser and nursing staff around 69 minutes
Original Note:
Today's Communication/Plan
-
Discharge planning
Assessment / Plan
Assessment / Plan
Physical Exam
General: Well Developed, Well Nourished, No Apparent Distress and Comfortable
HEENT: NormoCephalic, Anicteric, Moist mucous membranes and Atraumatic
Respiratory: Clear
Cardiac: S1/S2 and Regular Rhythm
Breast: Deferred by me
GI: Soft, Non Tender, Non Distended and Normal Bowel Sounds
Rectal: Red
Genito-urinary: No hematuria
Musculoskeletal: No Clubbing, No Cyanosis and No Edema
Skin: Warm
Neuro: Nonfocal/grossly intact
Hematologic/Lymphatic: No Lymphadenopathy
Psych: Calm
79-year-old female with past medical history of hypertension and hyperlipidemia who presents to the emergency department with rectal bleeding. She had 1 episode of rectal bleeding in the commode which she apparently also slowly collapsed to the
floor. There was no loss of consciousness. She was able to get up and denied feeling dizzy. She is currently with stable blood pressure 155/50. ECG is unremarkable. She is not on any thinners. No further bloody bowel movements since the
episode about 2 hours ago.
PLAN:
#Rectal bleeding
Acute blood loss anemia
-history of colonic polyps status post resection of 2 polyps in February. No known diverticula. Has history of nonbleeding internal hemorrhoids. No external hemorrhoid. She is not having any abdominal pain nausea or vomiting. She has no recent
diarrheal illness. She has drainage of blood about 1 week ago.
s/p 4 units total.
Status post EGD and colonoscopy without evidence of source
Status post upper endoscopy with no lesion found in the stomach/duodenum/jejunum
Recommend video capsule endoscopy as outpatient.
# Essential HTN
- held hctz upon admission
restart HCTZ in a.m.
Add PRN IV Hydralazine while NPO
# Mild cognitive impairment
Sometimes forgetful
No agitation
# Status post vasovagal syncopal episode. Resolved. Stable vital signs
# Leukocytosis, resolved
#HLD
- continue rosuvastatin
# NIKOLAS
- cpap 12 hs
DVT PPX - SCDs
Code status - DNR
Spoke with daughter Fatemeh about discharge planning [phone]
Total time spent to see the patient, examine the patient, review data and lab results, discuss treatment plan with patient and nursing staff around 55 minutes
Anticipated Discharge: Within 24 hours
Subjective/Interval History
-
Date of Service: September 22, 2024
No rectal bleeding
Objective Data
-
Labs:
Laboratory Results
09/22/24
06:28
WBC 5.9
Hgb 9.3 L
Hct 26.9 L
Plt Count 243
Sodium 137
Potassium 3.9
Chloride 104
Carbon Dioxide 28
BUN 13
Creatinine 0.7
Glucose 94
Calcium 8.4
Vital Signs:
Vital Signs
Temp Pulse Resp BP Pulse Ox
97.7 F 62 12 159/66 99
09/22/24 07:00 09/22/24 07:00 09/22/24 07:00 09/22/24 07:00 09/22/24 07:00
I&O
09/21/24 09/22/24 09/23/24
06:59 06:59 06:59
Intake Total 980 / 980 480 / 480
Balance 980 / 980 480 / 480
--- NOTE | 2024-09-22 10:01 | CM ---
TAMIKA spoke with patient's daughter [place]eh who is [place] and she is requesting SNF placement. TAMIKA sent referrals to [facility]
[place]
[facility] [place]
[facility]
[2024-09-22 11:00] VITALS: BP 144/70
--- NOTE | 2024-09-22 11:33 | CM ---
Addendum entered by Sarah Barry RN 09/22/24 13:42:
TAMIKA spoke with Marcello from [facility]. Patient has been accepted for today.
[facility]
Report
[phone]

Addendum entered by Sarah Barry RN 09/22/24 13:01:
TAMIKA left message for Travis admission coordinator and Amanda ESCOTOmaori liaison adviser at [facility] for admission feedback.
Original Note:
[facility] in [place] is considering patient.
--- NOTE | 2024-09-22 12:39 | W.PN.GI.CBS2 ---
Today's Communication / Plan
-
- Low residue diet.
- To visualize the small bowel, perform video capsule
endoscopy at appointment to be scheduled. Our office will call and schedule an appointment.
- Avoid NSAID's.
- Follow up with as outpatient.
Assessment / Plan
-
1. GI bleed: Obscure source, likely small intestinal given negative EGD and colonoscopy with small amount of old blood in the terminal ileum, though no further signs of gross bleeding
- No gross lesions in the entire esophagus.
- Z-line regular, 38 cm from the incisors.
- 3 cm hiatal hernia.
- No gross lesions in the entire stomach.
- Nodule found in the duodenum.
- Normal examined duodenum.
- Normal examined jejunum.
- No specimens collected.
Recommendation: - Low residue diet.
- To visualize the small bowel, perform video capsule
endoscopy at appointment to be scheduled. Our office will call and schedule an appointment.
- Avoid NSAID's.
- Follow up with as outpatient.
Subjective
Subjective
Date of Service: September 22, 2024
Patient without any complaints, tolerating diet no further bleeding
Objective
Data Reviewed
Laboratory Data:
Laboratory Results
09/22/24 06:28
09/22/24 06:28
Laboratory Results
PT 12.7 Sec (11.4-14.6) 09/16/24 22:51
INR 0.92 09/16/24 22:51
APTT 25.1 Sec (23.4-35.0) 09/16/24 22:51
Total Bilirubin 0.5 mg/dl (0.2-1.3) 09/16/24 22:51
AST 25 U/L (14-36) 09/16/24 22:51
ALT 16 U/L (0-35) 09/16/24 22:51
Alkaline Phosphatase 75 U/L (38-126) 09/16/24 22:51
Vital Signs and I&O:
Vital Signs
Temp Pulse Resp BP Pulse Ox
98.0 F 70 13 144/70 96
09/22/24 11:00 09/22/24 11:00 09/22/24 11:00 09/22/24 11:00 09/22/24 11:00
I&O
09/21/24 09/22/24 09/23/24
06:59 06:59 06:59
Intake Total 980 / 980 480 / 480
Balance 980 / 980 480 / 480
Physical Exam
Physical Exam
GI: Soft, Non Distended and Non Tender
--- NOTE | 2024-09-22 13:46 | W.DCSUMMARY ---
Discharge Summary
Discharge Data
Date of Admission: 09/17/24
Date of Discharge: 09/22/24
-
Pending Results: No
Hospital Course
79 years old female presented with rectal bleeding. Hemoglobin on admission was around 9. She did not have hypotension. Patient was diagnosed with acute blood loss anemia secondary to GI bleeding. Patient was evaluated by gastroenterology. She
had blood transfusion of 2 units. She underwent upper endoscopy and colonoscopy without evidence of a source. Repeat hemoglobin showed a drop in hemoglobin down to 6. She was given another 2 units and had upper endoscopy with no lesion found in
the stomach/duodenum/jejunum. GI doctor recommended video capsule endoscopy as outpatient. Hemoglobin stabilized around 9. Patient had total 4 units of red blood cell transfusion during this hospitalization. Patient did not have abdominal pain.
She was able to tolerate oral diet. 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 Physical therapy recommended Home health services. [facility] Discharge plan and instructions
were discussed with her daughter Fatemeh.
Discharge Plan
-
Patient Disposition: Care Home/SNF
Discharge Diagnosis/Procedures: Acute blood loss anemia secondary to GI bleeding status post transfusion of 4 units of blood.
Continue iron therapy
Diet: As tolerated
Blood Work: CBC in 2 weeks see slip on chart
Referrals:
Farheen Pearson, DO [Active] - (call Fl[facility] in GI office to arrange for OP capsule endoscopy. Will need follow up appt after completed. )
UNKNOWN - PT DOES,NOT KNOW [Family Provider] -
Prescriptions:
New
ferrous sulfate 325 mg (65 mg iron) tablet
325 mg PO DAILY Qty: 30 0RF
Continued
rosuvastatin 5 mg Tablet
5 mg PO DAILY
hydrochlorothiazide 12.5 mg Tablet
12.5 mg PO DAILY
donepezil [Aricept] 5 mg Tablet
5 mg PO DAILY
Discharge Orders:
Discharge Patient (As Directed); Ordered 09/22/24
Ordered By: Olegario Vides
Discharge Date and Time
Print Language: TRINIDADIAN
== END 2024-09-22 15:25 | DRG 378 ==
LOC: 4 EAST ACU 02:09
PROVIDERS: Emergency Medicine; Internal Medicine Gastroenterology; Nurse Practitioner; ADMITTING PHYSICIAN Internal Medicine; ATTENDING PHYSICIAN Internal Medicine; CONSULT PHYSICIAN Internal Medicine Gastroenterology; EMERGENCY PHYSICIAN Emergency Medicine
PROC: 30233N1 Transfusion of Nonautologous Red Blood Cells into Peripheral Vein, Percutaneous Approach (ICD-10-PCS; 2024-09-17)
PROC: 0DJ08ZZ Inspection of Upper Intestinal Tract, Via Natural or Artificial Opening Endoscopic (ICD-10-PCS; 2024-09-18)
PROC: 0DJD8ZZ Inspection of Lower Intestinal Tract, Via Natural or Artificial Opening Endoscopic (ICD-10-PCS; 2024-09-18)
DX: K92.2 Gastrointestinal hemorrhage, unspecified (principal); D62 Acute posthemorrhagic anemia; Z68.41 Body mass index [BMI] 40.0-44.9, adult; K64.8 Other hemorrhoids; E66.01 Morbid (severe) obesity due to excess calories; Z66 Do not resuscitate; E78.00 Pure hypercholesterolemia, unspecified; G47.33 Obstructive sleep apnea (adult) (pediatric); I10 Essential (primary) hypertension; F03.A0 Unspecified dementia, mild, without behavioral disturbance, psychotic disturbance, mood disturbance, and anxiety; R55 Syncope and collapse; K44.9 Diaphragmatic hernia without obstruction or gangrene; Z86.0100 Personal history of colon polyps, unspecified
CPT/HCPCS: 80048; 80053; 82607; 82728; 82746; 82962; 83540; 83550; 85014; 85018; 85025; 85027; 85610; 85730; 86803; 86850; 86900; 86901; 86920; 87340; 87389; 93005; 94660; 97162; 97167; 97530; 97535; 99285; P9016

== ENCOUNTER → 2024-10-04 10:32 | Outpatient (REF) | payer MEDICARE, OTHER, SELFPAY ==
[2024-10-04 11:24] LABS: Hematocrit 31.7 % (37.0-47.0); Hemoglobin 10.3 g/dL (12.0-16.0); Mean Corp Hgb Conc. 32.5 g/dL (33.0-37.0); Mean Corpuscular Hgb 32.5 pg (27.0-31.0); Mean Platelet Volume 9.1 fL (7.4-10.4); Platelet Count 291 10^3/uL (130-400); Red Blood Cell Count 3.17 10^6/uL (4.20-5.40); Red Cell Dist. Width 15.9 % (11.5-14.5); White Blood Cell Count 5.3 10^3/uL (4.8-10.8)
== END ==
LOC: REG 10:32
PROVIDERS: ATTENDING PHYSICIAN Internal Medicine
DX: D64.9 Anemia, unspecified (principal)
CPT/HCPCS: 36415; 85027

== ENCOUNTER → 2025-01-23 09:44 | Outpatient (REF) | payer MEDICARE, OTHER, SELFPAY ==
[2025-01-23 10:37] LABS: Hematocrit 39.4 % (37.0-47.0); Hemoglobin 13.2 g/dL (12.0-16.0); Mean Corp Hgb Conc. 33.5 g/dL (33.0-37.0); Mean Corpuscular Volume 92.1 fL (81.0-99.0); Nucleated Red Blood Cells % 0 %; Platelet Count 286 10^3/uL (130-400); Red Cell Dist. Width 14.0 % (11.5-14.5)
[2025-01-23 11:52] LABS: Iron 140 ug/dl (37-170)
[2025-01-23 12:01] LABS: Total Iron Binding Capacity 336 ug/dl (265-497)
[2025-01-23 13:10] LABS: Ferritin 19.7 ng/ml (11.1-264.0)
== END ==
LOC: REG 09:44
PROVIDERS: ATTENDING PHYSICIAN Nurse Practitioner Family
DX: K92.2 Gastrointestinal hemorrhage, unspecified (principal); D62 Acute posthemorrhagic anemia; Z12.31 Encounter for screening mammogram for malignant neoplasm of breast
CPT/HCPCS: 36415; 77063; 77067; 82728; 83540; 83550; 85025

== ENCOUNTER → 2025-03-15 12:04 | Outpatient (REF) | payer MEDICARE, OTHER, SELFPAY ==
[2025-03-15 15:34] LABS: ALT (SGPT) 17 U/L (0-35); AST (SGOT) 25 U/L (14-36); Albumin 4.0 g/dl (3.5-5.0); Alkaline Phosphatase 75 U/L (38-126); Blood Urea Nitrogen 13 mg/dl (7-17); Calcium 8.9 mg/dl (8.4-10.2); Carbon Dioxide 33 mmol/L (22-30); Chloride 103 mmol/L (98-107); Glucose 91 mg/dl (70-99); HDL Cholesterol 57 mg/dl; LDL Cholesterol, Calculated 89 mg/dl; Potassium 4.4 mmol/L (3.5-5.1); Sodium 139 mmol/L (135-145); Total Protein 6.9 g/dl (6.3-8.2); Very Low Density Lipoprotein 23 mg/dl (0-30); eGFR > 60.00
== END ==
LOC: REG 12:04
PROVIDERS: ATTENDING PHYSICIAN Internal Medicine Cardiovascular Disease; FAMILY PHYSICIAN Family Medicine
DX: E78.2 Mixed hyperlipidemia (principal)
CPT/HCPCS: 36415; 80053; 80061